=== PATIENT | male | born 1965 ===

== ENCOUNTER 2017-11-23 20:24 | Emergency (ER) | payer SELFPAY ==
[2017-11-23 20:24] VITALS: BMI 24.1
[2017-11-23] MEDS ORDERED: DiphenhydrAMINE 50 mg/ml Inj ONE (20:37)
[2017-11-23 20:39] VITALS: TEMP 97.9
[2017-11-23] MEDS ORDERED: Sodium Chloride 0.9% 1,000 ML IV ONE (20:46)
[2017-11-23] MEDS ORDERED: DiphenhydrAMINE 50 mg/ml Inj IVP STA (20:47)
--- NOTE | 2017-11-23 20:47 | C.PDOC ---
History Of Present Illness 52 year old male presents to the ER complaining of generalized rash with itching since 1100 this morning. Patient denies exposure to new food or allergens. He reports taking Benadryl at home with mild relief. He denies any shortness of breath, chest pain, fever, or chills. Time Seen by Provider: 11/23/17 20:44 Chief Complaint (Nursing): Allergic Reaction History Per: Patient History/Exam Limitations: no limitations Onset/Duration Of Symptoms: Hrs Current Symptoms Are (Timing): Still Present Possible Cause: Unknown Associated Symptoms: Skin Rash, Itching Home/EMS Treatment: Benadryl Past Medical History Reviewed: Historical Data, Nursing Documentation, Vital Signs Vital Signs: Last Vital Signs Temp 97.9 F 11/23/17 20:35 Pulse 86 11/23/17 21:47 Resp 15 11/23/17 21:47 BP 125/82 11/23/17 21:47 Pulse Ox 96 11/23/17 22:14 - Medical History PMH: Hyperthyroidism Surgical History: No Surg Hx Family History: States: No Known Family Hx - Social History Hx Tobacco Use: No Hx Alcohol Use: No Hx Substance Use: No - Immunization History Hx Tetanus Toxoid Vaccination: No Hx Influenza Vaccination: No Hx Pneumococcal Vaccination: No Review Of Systems Except As Marked, All Systems Reviewed And Found Negative. Constitutional: Negative for: Fever, Chills Cardiovascular: Negative for: Chest Pain Respiratory: Negative for: Shortness of Breath Skin: Positive for: Rash (Generalized rash with itching) Physical Exam - Physical Exam Appears: Non-toxic Skin: Other (Urticarial rash on legs, front and back of trunk, arms, ears, cheeks, right side of upper lip, and right periorbital area.) Head: Atraumatic, Normacephalic Eye(s): bilateral: Normal Inspection Oral Mucosa: Moist, No Drooling Lips: Erythema (Mild ) Throat: Normal, No Erythema, No Exudate, No Drooling Neck: Normal ROM Chest: Symmetrical Cardiovascular: Rhythm Regular Respiratory: Normal Breath Sounds, No Rales, No Rhonchi, No Wheezing Pulses: Left Dorsalis Pedis: Normal, Right Dorsalis Pedis: Normal Neurological/Psych: Oriented x3, Normal Speech Gait: Steady ED Course And Treatment O2 Sat by Pulse Oximetry: 96 (RA) Pulse Ox Interpretation: Normal Medical Decision Making Medical Decision Making: Impression: Allergic Reaction Orders: Benadryl 25 mg IVP Pepcid 20mg IVP Solu-Medrol Patient assessed and examined. Patient under observation. On reevaluation facial and periorbital edema much improved, upper lip edema improved as well. Patient will be D/C home with scripts for prednisone and pepcid. Disposition - Disposition Referrals: [facility] [Outside] Disposition: HOME/ ROUTINE Disposition Time: 22:23 Condition: FAIR Prescriptions: Famotidine [Pepcid] 40 mg PO DAILY #5 tablet predniSONE [predniSONE Tab] 20 mg PO DAILY #5 tab Instructions: Hives Forms: [employer] Te[employer] (Egyptian) Print Language: CROATIAN - Clinical Impression Clinical Impression: Allergic urticaria - Scribe Statement The provider has reviewed the documentation as recorded by the Scribfouzia Dubois All medical record entries made by the Efrainibfouzia were at my direction and personally dictated by me. I have reviewed the chart and agree that the record accurately reflects my personal performance of the history, physical exam, medical decision making, and the department course for this patient. I have also personally directed, reviewed, and agree with the discharge instructions and disposition.
[2017-11-23 21:47] VITALS: BP 125/82; PULSE 86; RESP 15
[2017-11-23 22:15] VITALS: O2SAT 96
== END 2017-11-23 22:23 | disposition home or self-care (01) ==
LOC: C.ER 20:24
DX: L50.0 Allergic urticaria (principal)
CPT/HCPCS: 96361; 96374; 96375; 99284; J1200; J2930; J7030